=== PATIENT | female | born 1965 | race Caucasian/White ===

== ENCOUNTER 2020-01-10 06:05 | Day surgery (SDC) | payer BC, SELFPAY ==
[~2020-01-10] VITALS: Ht 170.2 cm; Wt 63.5 kg
[2020-01-10] MEDS ORDERED: METOCLOPRAMIDE HCL 10 MG/2 ML VIAL IVP PRN (10:15)
[2020-01-10] MEDS: HYDROmorphone 1 MG INJ. 1 MG/ML AMPUL IVP PRN ×3 (10:15→11:00)
[2020-01-10] MEDS ORDERED: HYDROmorphone 1 MG INJ. 1 MG/ML AMPUL IVP PRN (10:15)
[2020-01-10] MEDS ORDERED: ONDANSETRON HCL 4 MG/2 ML VIAL IVP PRN (10:15)
[2020-01-10] MEDS ORDERED: MORPHINE SULFATE 10 MG/ML VIAL IVP PRN (10:15)
[2020-01-10] MEDS ORDERED: LR 1,000 ML IV SCH (10:15)
[2020-01-10] MEDS ORDERED: MIDAZOLAM HCL 2 MG/2 ML VIAL (VERSED) IVP PRN (10:15)
[2020-01-10] MEDS ORDERED: MEPERIDINE HCL/PF 25 MG/ML DISP.SYRIN IVP PRN (10:15)
[2020-01-10] MEDS ORDERED: LR 1,000 ML IV.SOLN IV ONE (10:20)
[2020-01-10] MEDS ORDERED: MIDAZOLAM HCL 5 MG/ML VIAL (VERSED) IV ONE (10:20)
[2020-01-10] MEDS ORDERED: NS IRRIG SOLN 1000 ML IR ONE (10:20)
[2020-01-10] MEDS ORDERED: ROCURONIUM BROMIDE 10 MG/ML (ZEMURON) ONE (10:20)
[2020-01-10] MEDS ORDERED: OXYMETAZOLINE HCL 0.05% NASAL SPRAY NS ONE (10:20)
[2020-01-10] MEDS ORDERED: LIDOCAINE/EPI 1% 1:100000 20 ML VIAL INJ ONE (10:20)
[2020-01-10] MEDS ORDERED: DEXAMETHASONE SOD PHOSPHATE 4 MG/ML VIAL ONE (10:20)
[2020-01-10] MEDS ORDERED: CIPROFLOXACIN HCL 0.3% EYE DRP 2.5 ML DROPS ONE (10:20)
[2020-01-10] MEDS ORDERED: EPINEPHrine 1 MG/ML AMP ONE (10:20)
[2020-01-10] MEDS ORDERED: GLYCOPYRROLATE 0.2 MG/ML VIAL ONE (10:20)
[2020-01-10] MEDS ORDERED: PROPOFOL 200MG/ 20ML VIAL (DIPRIVAN) IV ONE (10:20)
[2020-01-10] MEDS ORDERED: DESFLURANE 15 MIN GAS INH ONE (10:20)
[2020-01-10] MEDS ORDERED: fentaNYL CITRATE/PF 100 MCG/2 ML AMP ONE (10:20)
[2020-01-10] MEDS ORDERED: ONDANSETRON HCL 4 MG/2 ML VIAL ONE (10:20)
[2020-01-10] MEDS ORDERED: SUGAMMADEX SODIUM 200 MG/2 ML VIAL IV ONE (10:20)
[2020-01-10] MEDS ORDERED: HYDROmorphone 1 MG INJ. 1 MG/ML AMPUL ONE ×2 (10:30→11:15)
[2020-01-10] MEDS ORDERED: MIDAZOLAM HCL 2 MG/2 ML VIAL (VERSED) ONE (10:41)
[2020-01-10 11:27] VITALS: BP_SYST 108
== END 2020-01-10 13:52 | disposition home or self-care (01) ==
LOC: SDS 06:05 → SMU 06:05 → SDS 13:52
PROVIDERS: ATTEND Otolaryngology
DX: J34.2 Deviated nasal septum (principal); J32.4 Chronic pansinusitis; H66.001 Acute suppurative otitis media without spontaneous rupture of ear drum, right ear; E78.00 Pure hypercholesterolemia, unspecified; Z79.899 Other long term (current) drug therapy
CPT/HCPCS: 30520; 31255; 31256; 31298; 88305; 88311; C1726; C9399; J0171; J1100; J1170; J2250; J2405; J2704; J3010; J3465; J3490; J7120; L8699

== ENCOUNTER 2020-07-01 14:28 | Outpatient (CLI) | payer OTHER, SELFPAY | END 2020-07-01 18:51 | disposition home or self-care (01) | LOC: SLB 14:28 | PROVIDERS: ATTEND Otolaryngology | DX: Z20.828 Contact with and (suspected) exposure to other viral communicable diseases (principal) | CPT/HCPCS: 36415 ==